=== PATIENT | female | born 2000 | race Caucasian/White ===

== ENCOUNTER 2021-04-19 18:07 | Inpatient (IN) | payer OTHER ==
[~2021-04-19] VITALS: Ht 172.7 cm; Wt 70.5 kg
== END 2021-04-21 14:50 | disposition home or self-care (01) | DRG 603 ==
LOC: ER 18:07 → EMR PED 18:33 → ER 18:33 → PED 21:32
PROVIDERS: ADMIT Surgery; ATTEND Surgery
PROC: 0H98XZZ Drainage of Buttock Skin, External Approach (ICD-10-PCS; principal; 2021-04-20 12:00)
DX: L02.31 Cutaneous abscess of buttock (principal); Z20.822 Contact with and (suspected) exposure to COVID-19

== ENCOUNTER 2024-10-31 16:44 | Emergency (ER) | payer OTHER ==
[~2024-10-31] VITALS: Ht 167.6 cm; Wt 88.5 kg
[2024-10-31] MEDS ORDERED: CEFTRIAXONE SODIUM 1,000 MG VIAL IM STA (19:14)
[2024-10-31] MEDS ORDERED: KETOROLAC TROMETHAMINE 30 MG VIAL IM STA (19:14)
[2024-10-31] MEDS ORDERED: KETOROLAC TROMETHAMINE 30 MG VIAL ONE (19:44)
[2024-10-31] MEDS ORDERED: CEFTRIAXONE SODIUM 1,000 MG VIAL ONE (19:45)
== END 2024-10-31 20:54 | disposition home or self-care (01) ==
LOC: ER 16:52
DX: L05.91 Pilonidal cyst without abscess (principal)